=== PATIENT | male | born 1960 | race Caucasian/White ===

== ENCOUNTER → 2017-10-21 16:21 | Outpatient (CLI) | payer BC, SELFPAY ==
--- NOTE | 2017-10-21 16:26 | CT_ITS ---
STUDY: CT ABDOMEN AND PELVIS WITH AND WITHOUT CONTRAST REASON FOR EXAM: Male, 57 years old. Hematuria RADIATION DOSAGE (If Supplied By Facility): CTDIvol = ( 11.50 ) mGy, DLP = ( 788.32 ) mGycm TECHNIQUE: Transaxial images were obtained from the dome of the diaphragm to the symphysis pubis without oral contrast. 100 ml of Isovue 300 contrast was administered. Sagittal and coronal images were reconstructed. Individualized dose optimization techniques were used for this CT. COMPARISON: None. FINDINGS: The visualized lung bases are unremarkable. The visualized portions of the heart are within normal limits. Normal liver. Normal gallbladder and extrahepatic biliary system. Normal spleen. Normal pancreas. Normal adrenal glands. There are no urinary calculi. There is no hydronephrosis. There is symmetric enhancement and excretion noted in the kidneys following contrast administration. There is a simple cyst is noted in the left kidney. There are no solid or enhancing renal lesions. The urinary bladder is unremarkable. There is no bowel obstruction or inflammation. The prostate is mildly enlarged, measuring 5.0 x 4.3 cm. There is no abdominal or pelvic free air, free fluid or lymphadenopathy. The aorta is normal in caliber. There are no destructive osseous lesions. CT/CT Abd/Pelvis W/WO Contrast IMPRESSION: No urinary calculi. No hydronephrosis. Simple cyst in the left kidney. No additional renal lesions. Mildly enlarged prostate. Electronically Signed: Pavel Gates, at 17:26 EDT Tel , Service support ,
== END ==
PROVIDERS: Family Provider Family Medicine; PCP Family Medicine; Visit Provider Nurse Practitioner Adult Health
DX: R31.29 Other microscopic hematuria (principal)
CPT/HCPCS: 74178; Q9967

== ENCOUNTER → 2017-11-02 14:56 | Outpatient (CLI) | payer BC, SELFPAY ==
[2017-11-02 16:49] LABS: PSA,Total - Annual Screen 4.58 ng/mL (0.00-4.00)
== END ==
PROVIDERS: Family Provider Family Medicine; PCP Family Medicine; Visit Provider Urology
DX: Z12.5 Encounter for screening for malignant neoplasm of prostate (principal)
CPT/HCPCS: 36415; 84153; G0103

== ENCOUNTER → 2017-11-02 16:46 | Outpatient (CLI) | payer BC, SELFPAY ==
--- NOTE | 2017-11-02 | CYSPIN_PTH ---
PATIENT: DEBBI HORNE LOC: [facility] U#:[id number] AGE/SX: 64/M ROOM: RE11/02/[address]: Dr. Quirino Carvajal MD : 1960 BED: DIS: SPEC #: [id number] RECD: 11/02/17 08:06 STATUS: JESUS RAFAEL #: [id number] JOSEFA: 11/02/17 00:[address]: Quirino Carvajal DEPT: CYTOLOGY RECD BY: Chris De La Rosa ENTERED: 11/03/17 08:06 SP TYPE: CYSPIN FL OTHR DR: Dr. Ramírez Rushing MD Tissues: Urine Procedures: Pap Stain (control) Special Stain Group II Cytospin Fluid HEADER OPERATION: Not noted PRE-OP DIAGNOSIS: Hematuria TISSUE SUBMITTED: Urine for cytology DIAGNOSIS CYTOLOGY Urine for cytology (cytospin): Negative for malignant cells. SJ:ramses 11/04/17 CYTOLOGY STUDY Slides are reviewed. The specimen predominantly consists of benign squamous cells, a few urothelial cells and red blood cells. CYTOLOGY GROSS Received is 20 ml of light yellow clear fluid labeled with the patient's name and and designated per the requisition as urine. Submitted for cytology preparation. 11/03/17 TC:5 CPT: 69801
[2017-11-02 16:48] LABS: Cytology, Body Fluid / CSF SEE PATHOLOGY REPORT
== END ==
PROVIDERS: Family Provider Family Medicine; PCP Family Medicine; Visit Provider Urology
DX: R31.9 Hematuria, unspecified (principal)
CPT/HCPCS: 88108; 88313

== ENCOUNTER → 2021-06-07 07:33 | Outpatient (CLI) | payer BC, SELFPAY ==
[2021-06-07 08:01] LABS: Hematocrit 46.4 % (40-54); Hemoglobin 15.4 g/dL (13.0-16.5); Mean Corp Hgb Conc 33.2 g/dL (32-36); Mean Corpuscular Hgb 27.8 pg (27.0-32.0); Mean Corpuscular Volume 83.9 fL (80-94); Mean Platelet Vol. 10.2 fl (6.2-12.0); Platelet Count 233 K/mm3 (150-450); RBC Distribution Width CV 11.7 % (11.6-14.6); RBC Distribution Width SD 35.5 fl (35.1-43.9); Red Blood Count 5.53 M/mm3 (4.6-6.2); White Blood Count 3.4 K/mm3 (4.4-11.0)
[2021-06-07 08:21] LABS: AST(SGOT) 32 U/L (15-37); Alanine Aminotransfer ALT/SGPT 56 U/L (16-61); Albumin, Serum 3.9 g/dL (3.2-5.0); Alkaline Phosphatase 76 U/L (45-117); Anion Gap 5 (5-15); BUN 16 mg/dL (7-18); BUN/Creat Ratio 17.4 RATIO (10-20); Calcium,Total 9.3 mg/dL (8.5-10.1); Chloride 103 mmol/L (98-107); Cholesterol 189 mg/dL (200); Creatinine, Serum 0.92 mg/dL (0.70-1.30); EST Glomerular Filtration Rate 90 mL/min (>60); Est Glom Filt Rate - Afr Amer 108 mL/min (>60); Glucose 100 mg/dL (74-106); High Density Lipoprotein 55 mg/dL; PSA,Total - Annual Screen 5.09 ng/mL (0.00-4.00); Potassium 4.2 mmol/L (3.5-5.1); Protein, Total 7.9 g/dL (6.4-8.2); Sodium Level 138 mmol/L (136-145); Triglycerides 85 mg/dL; Very Low Density Lipoprotein 17 mg/dL (5-40)
== END ==
PROVIDERS: PCP Nurse Practitioner Primary Care; Referring Provider Urology; Visit Provider Urology
DX: Z00.00 Encounter for general adult medical examination without abnormal findings (principal); R97.20 Elevated prostate specific antigen [PSA]; Z12.5 Encounter for screening for malignant neoplasm of prostate; Z12.11 Encounter for screening for malignant neoplasm of colon
CPT/HCPCS: 36415; 80053; 80061; 84153; 85027; G0103

== ENCOUNTER → 2023-06-24 | Outpatient (CLI) | payer BC, SELFPAY | END | disposition home or self-care (01) | LOC: LAB 08:43 | PROVIDERS: PCP Nurse Practitioner Primary Care; Referring Provider Nurse Practitioner; Visit Provider Nurse Practitioner | DX: R97.20 Elevated prostate specific antigen [PSA] (principal) | CPT/HCPCS: 36415; 84153 ==

== ENCOUNTER → 2023-07-27 | Outpatient (CLI) | payer BC, SELFPAY ==
--- NOTE | 2023-07-27 13:00 | PROSBIL_PTH ---
PATHOLOGY RESULTS PATIENT: DEBBI HORNE LOC: [facility] U#:[id number] AGE/SX: 62/M ROOM: RE07/27/[address]: Dr. Quirino Carvajal MD : 1960 BED: DIS: 07/27/2023 SPEC #: [id number] RECD: 07/28/23 08:57 STATUS: JESUS REMami #: [id number] JOSEFA: 07/27/23 13:[address]: Quirino Carvajal DEPT: SURGICAL PATHOLOGY RECD BY: Jeniffer Olson ENTERED: 07/28/23 08:58 SP TYPE: PROST BX ELVIA DR: Omar Simmons, MONY Tissues: PROSTATE RIGHT PROSTATE RIGHT PROSTATE RIGHT PROSTATE LEFT PROSTATE LEFT PROSTATE LEFT Procedures: PROSTATE BX HEADER OPERATION: Prostate biopsy PRE-OP DIAGNOSIS: Elevated PSA TISSUE SUBMITTED: A - Right apex, B - Right mid, C - Right base, D - Left apex, E - Left mid, F - Left base MICROSCOPIC DIAGNOSIS A. Right prostate, apex, core biopsy: Glandular atrophy. Focal acute inflammation. See comment. B. Right prostate, mid, core biopsy: Mild chronic inflammation. Focal acute inflammation. Glandular atrophy. See comment. C. Right prostate, base, core biopsy: Glandular atrophy and mild chronic inflammation. D. Left prostate, apex, core biopsy: Benign prostatic tissue. E. Left prostate, mid, core biopsy: Focal glandular atrophy. F. Left prostate, base, core biopsy: Mild chronic inflammation, glandular atrophy and focal acute inflammation. AM:ramses 07/29/2023 COMMENT A & B. Immunohistochemistry ([id number]) supports the above diagnosis. MICROSCOPIC DESCRIPTION Slides are reviewed. GROSS DESCRIPTION A - Received is one container designated prostate, right apex. The specimen consists of two elongated fragments of light perez-white soft tissue measuring 1.0 and 2.0 cm in length and 0.1 cm in diameter. The specimen is totally submitted in one cassette. B - Received is one container designated prostate, right mid. The specimen consists of two elongated fragments of light perez-white soft tissue each measuring 1.8 cm in length and 0.1 cm in diameter. The specimen is totally submitted in one cassette. C - Received is one container designated prostate, right base. The specimen consists of two elongated fragments of light perez-white soft tissue measuring 1.2 and 1.5 cm in length and 0.1 cm in diameter. The specimen is totally submitted in one cassette. D - Received is one container designated prostate, left apex. The specimen consists of two elongated fragments of light perez-white soft tissue each measuring 1.5 cm in length and 0.1 cm in diameter. The specimen is totally submitted in one cassette. E - Received is one container designated prostate, left mid. The specimen consists of two elongated fragments of light perez-white soft tissue measuring 0.6 and 1.5 cm in length and 0.1 cm in diameter. The specimen is totally submitted in one cassette. F - Received is one container designated prostate, left base. The specimen consists of two elongated fragments of light perez-white soft tissue each measuring 1.5 cm in length and 0.1 cm in diameter. The specimen is totally submitted in one cassette. / SJ:rg 07/28/2023 TC:2 CPT: 16084 x6
--- OUTSIDE RECORDS SUMMARY | 2023-07-27 16:54 | XMS RPT_ITS | CCD ---
Author Name Unknown Address [address] [place] [address] Organization [facility] Care Team Providers Care Web Communications Specialist Name Role Phone DARRELL NORTON, FEROZ Primary Care Physician [phone] DARRELL MEDICAL EDUCATION SPECIALIST-ACCOUNT LEADER, FEROZ Primary Care Unavailabl e BALTES MEDICAL EDUCATION SPECIALIST-ACCOUNT LEADER, FEROZ Attending Unavailabl e FRANKOTES MEDICAL EDUCATION SPECIALIST-ACCOUNT LEADER, FEROZ Primary Care UnavailREBA Lee Attending Unavailable REBA VALLES Attending Unavailable BALTES MEDICAL EDUCATION SPECIALIST-ACCOUNT LEADER, FEROZ Primary Care Unavailabl samaria TORRES MD, CLAUDIA W Attending Unavailable BALTES MEDICAL EDUCATION SPECIALIST-ACCOUNT LEADER, FEROZ Primary Care Unavailabl e MCCUISTION MEDICAL EDUCATION SPECIALIST-ACCOUNT LEADER, HARISH Attending Chitra vailable DARRELL GURROLAN-ACCOUNT LEADER, FEROZ Primary Care Unavailabl e ALIVIA RAMIREZ MD Attending Unavailable BALTES MEDICAL EDUCATION SPECIALIST-ACCOUNT LEADER, FEROZ Primary Care Unavailabl e BALTES MEDICAL EDUCATION SPECIALIST-ACCOUNT LEADER, FEROZ Primary Care Unavailabl e BALTES MEDICAL EDUCATION SPECIALIST-ACCOUNT LEADER, FEROZ Attending REBA Jansen Attending Unavailable BALTES MEDICAL EDUCATION SPECIALIST-ACCOUNT LEADER, FEROZ Primary Care Unavailabl e BALTES MEDICAL EDUCATION SPECIALIST-ACCOUNT LEADER, FEROZ Primary Care Unavailabl e BALTES MEDICAL EDUCATION SPECIALIST-ACCOUNT LEADER, FEROZ Attending Unavailabl e Medications Current Medications Medication Drug Class(es) Dates Sig (Normalized) Sig (Original) acetaminophen 325 mg / HYDROcodone bitartrate 5 mg oral tablet (1 source) Opioid Agonist Start: 09-30-2021 End: 10-03-2021 take 1 tablet by mouth every six hours as needed for pain [place] 325- 5 mg oral tablet Dose = 1 tab(s), Oral, q6h, PRN as needed for pain, X 3 day(s), # 12 tab(s), 0 Refill(s), Lateral malleolar fracture, 75 Start Date: 09/30/21 Stop Date: 10/03/21 Status: Ordered albuterol MDI (90 mcg/inh) CFC free inhalation aerosol (3 sources) Start: 04-21-2021 take 2 puff(s) by inhalation every four hours as needed for wheezing albuterol MDI (90 mcg/inh) CFC free inhalation aerosol 2 puff(s), Inhalation, q4h, PRN as needed for wheezing, # 18 gram(s), 0 Refill(s), Pharmacy: [facility]/pharmacy #[id number], URI with cough and congestion, 167.6, cm, 04/21/21 9:22:00 EDT, Height, kg, 04/21/21 9:22:00 EDT, Dosing Weight Start Date: 04/21/21 Status: Ordered Ascorbic Acid (2 sources) Vitamin C Start: 11-28-2020 Vitamin C qDay, unsure of amount, 0 Refill(s) Start Date: 11/28/20 Status: Ordered FISH OIL, OMEGA 3, VIT D (10 sources) Start: 11-15-2018 take 3 tablets by mouth once FISH OIL, OMEGA 3, VIT D FISH OIL, OMEGA 3, VIT D, 1 TAB, Oral, Daily, D3 1000 IU Fish Oil 1000 mg, 0 Refill(s) Start Date: 11/15/18 Status: Ordered Completed/Discontinued Medications Medication Drug Class(es) Dates Sig (Normalized) Sig (Original) erythromycin 0.005 mg/mg ophthalmic ointment (10 sources) Macrolide, Macrolide Antimicrobial Start: 04-23-2017 erythromycin 0.5% ophthalmic ointment Dose = 1 dinesh, Eye, right, Daily, PRN as needed, 0 Refill(s) Start Date: 04/23/17 Status: Ordered Problems Active Problems Problem Classification Problem Date Documented Da te Episodic/Chronic Essential hypertension (12 sources) Hypertensive disorder; Translations: [Essential (primary) hypertension] Onset: 12-17-2022 04-23-2017 Chronic Fracture of lower limb (2 sources) Closed fracture of lateral malleolus; Translations: [Displaced fracture of lateral malleolus of unspecified fibula, initial encounter for closed fracture] Onset: 09-30-2021 Episodic Hyperplasia of prostate (3 sources) Benign prostatic hyperplasia 12-27-2022 Chronic Other ear and sense organ disorders (3 sources) Tinnitus 12-27-2022 Episodic Thyroid disorders (10 sources) Graves' disease 04-23-2017 Chronic Unclassified (12 sources) Patient encounter status 12-27-2022 Past or Other Problems Problem Classification Problem Date Documented Da te Episodic/Chronic Other screening for suspected conditions (not mental disorders or infectious disease) (2 sources) Encounter for screening for malignant neoplasm of colon; Translations: [Encounter for screening for malignant neoplasm of colon] Onset: 07-24-2022 Episodic Results Test Name Value Interpretation Reference Range Facil ity Vital Signs Date Time Vital Sign Value Performing Clinician Faci lity 07-24-2022 11:56-0500 Diastolic Blood Pressure Non-Invasive 78 1 CLAUDIA TORRES MD [facility] 07-24-2022 11:56-0500 Heart rate 65 /min CLAUDIA TORRES MD [facility] 07-24-2022 11:56-0500 Respiratory rate 18 /min CLAUDIA TORRES MD [facility] 07-24-2022 11:56-0500 Systolic Blood Pressure Non-Invasive 121 1 CLAUDIA TORRES MD [facility] 07-24-2022 11:46-0500 Diastolic Blood Pressure Non-Invasive 83 1 CLAUDIA TORRES MD [facility] 07-24-2022 11:46-0500 Heart rate 66 /min CLAUDIA TORRES MD [facility] 07-24-2022 11:46-0500 Respiratory rate 13 /min CLAUDIA TORRES MD [facility] 07-24-2022 11:46-0500 Systolic Blood Pressure Non-Invasive 125 1 CLAUDIA TORRES MD [facility] 07-24-2022 11:34-0500 Diastolic Blood Pressure Non-Invasive 87 1 CLAUDIA TORRES MD [facility] 07-24-2022 11:34-0500 Heart rate 55 /min CLAUDIA TORRES MD [facility] 07-24-2022 11:34-0500 Respiratory rate 12 /min CLAUDIA TORRES MD [facility] 07-24-2022 11:34-0500 Systolic Blood Pressure Non-Invasive 131 1 CLAUDIA TORRES MD [facility] 07-24-2022 11:05-0500 Blood Pressure Location CLAUDIA TORRES MD [facility] 07-24-2022 11:05-0500 Blood Pressure Method CLAUDIA TORRES MD [facility] 07-24-2022 11:05-0500 Body temperature 97.16 [degF] CLAUDIA TORRES MD [facility] 07-24-2022 11:00-0500 Respiratory Rate - Anes 17 br/min CLAUDIA TORRES MD [facility] 07-24-2022 10:55-0500 Respiratory Rate - Anes 18 br/min CLAUDIA TORRES MD [facility] 07-24-2022 10:50-0500 Respiratory Rate - Anes 22 br/min CLAUDIA TORRES MD [facility] 07-24-2022 09:58-0500 Body height 167.6 cm CLAUDIA TORRES MD [facility] 07-24-2022 09:58-0500 Body weight 72.7 kg CLAUDIA TORRES MD [facility] 07-24-2022 09:44-0500 Body height 167.6 cm CLAUDIA TORRES MD [facility] 07-24-2022 09:44-0500 Body temperature 95.72 [degF] CLAUDIA TORRES MD [facility] 07-24-2022 09:44-0500 Heart rate 62 /min CLAUDIA TORRES MD [facility] 09-30-2021 10:01-0400 Body height 167.6 cm REY FROMMELT DO [facility] 09-30-2021 10:01-0400 Body temperature 98.42 [degF] REY FROMMELT DO [facility] 09-30-2021 10:01-0400 Body weight 75 kg REY FROMMELT DO [facility] 09-30-2021 10:01-0400 Diastolic blood pressure 100 mm[Hg] REY FROMMELT DO [facility] 09-30-2021 10:01-0400 Heart rate 70 /min REY FROMMELT DO [facility] 09-30-2021 10:01-0400 Respiratory rate 18 /min REY FROMMELT DO [facility] 09-30-2021 10:01-0400 Systolic blood pressure 162 mm[Hg] REY FROMMELT DO [facility] Encounters Encounter Date Encounter Type Care Provider Facility Start: 06-07-2023 End: 06-08-2023 ambulatory REBA VALLES Facility:B Start: 06-07-2023 End: 06-07-2023 Patient encounter procedure REBA VALLES MD [facility] Start: 02-26-2023 End: 02-27-2023 ambulatory REBA VALLES Facility:A Start: 02-26-2023 End: 02-26-2023 Patient encounter procedure REBA VALLES MD [facility] Start: 01-26-2023 End: 01-27-2023 ambulatory FEROZ BALTES MEDICAL EDUCATION SPECIALIST-ACCOUNT LEADER Facility:B Start: 12-31-2022 End: 01-01-2023 ambulatory FEROZ BALTES MEDICAL EDUCATION SPECIALIST-ACCOUNT LEADER Facility:B Start: 12-31-2022 End: 12-31-2022 Patient encounter procedure FEROZ BALTES MEDICAL EDUCATION SPECIALIST-ACCOUNT LEADER [facility] Start: 12-17-2022 End: 12-22-2022 ambulatory FEROZ BALTES MEDICAL EDUCATION SPECIALIST-ACCOUNT LEADER Facility:B Start: 12-17-2022 End: 12-21-2022 Outreach Lab FEROZ BALTES MEDICAL EDUCATION SPECIALIST-ACCOUNT LEADER [facility] Start: 11-14-2022 End: 11-15-2022 ambulatory FEROZ BALTES MEDICAL EDUCATION SPECIALIST-ACCOUNT LEADER Facility:B Start: 11-14-2022 End: 11-14-2022 Patient encounter procedure FEROZ BALTES MEDICAL EDUCATION SPECIALIST-ACCOUNT LEADER [facility] Start: 07-24-2022 End: 07-24-2022 ambulatory CLAUDIA TORRES MD Facility:B Start: 07-24-2022 End: 07-24-2022 Minor Procedure CLAUDIA TORRES MD [facility] Start: 06-29-2022 End: 06-30-2022 ambulatory HARISH FREED MEDICAL EDUCATION SPECIALIST-ACCOUNT LEADER Facility:B Start: 06-29-2022 End: 06-29-2022 Patient encounter procedure HARISH FREED MEDICAL EDUCATION SPECIALIST-ACCOUNT LEADER [facility] Start: 11-11-2021 End: 01-20-2022 Physical therapy management RAMIRO MAGDALENO MD [facility] Start: 09-30-2021 End: 09-30-2021 Emergency department patient visit REY VIEIRA DO [facility] Procedures Date Procedure Procedure Detail Performing Clinician Start: 04-23-2017 Colonoscopy and biop sy of colon REY VIEIRA DO Start: 07-05-2016 Bilateral cataracts (disorder) REY VIEIRA DO Immunizations Immunization Date Immunization Notes Care Provider Joni cunningham 06-04-2021 COVID-19, mRNA, LNP- S, PF, 100 mcg or 50 mcg dose; Translations: [Moderna COVID-19 Vaccine] REY VIEIRA DO [facility] 10-27-2020 SARS-CoV-2 (COVID-19 ) mRNA-1273 vaccine REY VIEIRA DO [facility] Payers Date Payer Category Payer Unknown [id number] 1960 Unknown [id number] [id number] [id number] 1960 Unknown [id number] 2.16.8 [id number] 1960 Unknown [id number] 2.16.8 [id number] 1960 Unknown [id number] 2.16.8 [id number] 1961 Unknown [id number] 2.16.8 [id number] 1961 Unknown [id number] 2.16.8 [id number] 1961 Unknown [id number] 2.16.8 [id number] 1961 Unknown [id number] 2.16.8 [id number] 1960 Unknown [id number] 2.16.8 [id number] Social History Date Type Detail Facility Start: 04-21-2021 End: 12-17-2022 Tobacco smoking status Ex-smoker (finding) [facility] Functional Status Date Assessment Result Facility 07-24-2022 Functional Status Ambulating in room, Awake [facility] 07-24-2022 Functional Status Maintained [facility] 09-30-2021 Functional Status [facility] 09-30-2021 Functional Status [facility] Mental Status Date Assessment Result Facility 07-24-2022 Mental Status Orientation Asse ssment Oriented x 4 [facility] 09-30-2021 Mental Status [facility] 09-30-2021 Mental Status [facility] Clinical Notes 09-30-2021 to 06-07-2023 LaboratoryRadiologyLaboratory Note Date & Type Note Facility 06-07-2023 Note ORIGINAL EXAMINATION: CT CHEST WITHOUT CONTRAST 06/07/2023 4:05 pm HISTORY: ORDERING SYSTEM PROVIDED HISTORY: Reason for Exam: LUNG NODULE F/U nodule, no current chest complaints.. TECHNIQUE: Multiple-row detector helical CT examination of the thorax without IV contrast. Axial, sagittal, and coronal reconstructed images. This exam was performed according to the departmental dose-optimization program which includes automated exposure control, adjustment of the mA and/or kV according to patient size and/or use of iterative reconstruction technique. COMPARISON: 12/31/2022. FINDINGS: 1.2 x 0.9 cm nodule in the left upper lobe shown to be non hypermetabolic on PET scan is not significantly changed in size or appearance. There is no evidence of new pulmonary nodule. There is no evidence of pleural effusion or pneumothorax. No new airspace or interstitial lung disease is identified. Tracheobronchial tree is fairly well preserved. There is no evidence of axillary, supraclavicular, mediastinal for hilar lymph node enlargement. There is no evidence of pericardial effusion. No thoracic aortic aneurysm is identified. The adrenal glands are not enlarged. Bone windows reveal no evidence of acute fracture or osteolytic/osteoblastic lesion. Anterior fusion is noted in the inferior cervical spine. IMPRESSION: Stable 12 mm left upper lobe pulmonary nodule since 12/31/2022. Follow-up CT of the chest in 6-12 months to ensure further stability. Interpreted by: Mg Askew Preliminary Report By: Mg sAkew Electronically signed By Mg Askew Dictated Date: 06/07/2023 4:33:02 PM Prelim Date: 06/07/2023 4:39:56 PM Sign Date: 06/07/2023 4:39:56 PM [facility] Note ORIGINAL EXAMINATION: PET TUMOR IMAGING SKULL-THIGH02/26/2023 9:31 am TECHNIQUE: Intravenous injection of 14.8 mCi Fluorine-18 fluorodeoxyglucose (FDG) was administered, followed by acquisition of positron emission tomographic images from the skull base to mid thigh, with concurrent low-dose CT for attenuation correction and anatomic localization utilizing a combined PET/CT scanner. PET images were fused with low-dose CT at the workstation. Dose ceffzzrha-ck-ixwo time:81 min Serum glucose level: 95 mg/dl COMPARISON: CT chest 12/31/2022 HISTORY: ORDERING SYSTEM PROVIDED HISTORY: Reason for Exam: LUNG NODULE FINDINGS: NECK: No hypermetabolic soft tissue lesion within the neck. No hypermetabolic cervical lymph nodes. CHEST: Left upper lobe 1.2 cm lung nodule is without significant hypermetabolic activity (max SUV of 0.8). There may be small areas of calcification within this nodule. No hypermetabolic mediastinal, hilar, or axillary lymphadenopathy. ABDOMEN/PELVIS: No hypermetabolic soft tissue lesion. No hypermetabolic abdominal or pelvic lymphadenopathy. Physiologic excretion of radiotracer is present within the kidneys, ureters, urinary bladder, as well as the bowel. Enlarged prostate, with probable chronic outlet obstruction. Mild colonic diverticulosis. MUSCULOSKELETAL: No hypermetabolic or suspicious osseous lesion to suggest osseous metastatic disease. IMPRESSION: 1. 1.2 cm left upper lobe pulmonary nodule is non FDG avid, and benignity is strongly favored. Patient may return to screening low-dose CT in December of 2023 2. No FDG avid malignancy throughout the remainder of the torso. I have personally reviewed the images of this examination and agree with the resident's findings and interpretation. Interpreted by: Gianni Guy DO Preliminary Report By: Jordan Patel Electronically signed By Gianni Guy DO Dictated Date: 02/26/2023 9:39:31 AM Prelim Date: 02/26/2023 10:25:34 AM Sign Date: 02/26/2023 10:25:34 AM Ordering Provider: REBA VALLES [facility] 07-24-2022 Hospital Discharg e instructions Patient Education 07/24/2022 10:59:50 Nausea and Vomiting, Adult, Anxo-ri-Gkxe Nausea and Vomiting, Adult Nausea is feeling sick to your stomach or feeling that you are about to throw up (vomit). Vomiting is when food in your stomach is thrown up and out of the mouth. Throwing up can make you feel weak. It can also make you lose too much water in your body (get dehydrated). If you lose too much water in your body, you may: Feel tired. Feel thirsty. Have a dry mouth. Have cracked lips. Go pee (urinate) less often. Older adults and people with other diseases or a weak body defense system (immune system) are at higher risk for losing too much water in the body. If you feel sick to your stomach and you throw up, it is important to follow instructions from your doctor about how to take care of yourself. Follow these instructions at home: Watch your symptoms for any changes. Tell your doctor about them. Follow these instructions to care for yourself at home. Eating and drinking Take an ORS (oral rehydration solution). This is a drink that is sold at pharmacies and stores. Drink clear fluids in small amounts as you are able, such as: ?Water. ?Ice chips. ?Fruit juice that has water added (diluted fruit juice). ?Low-calorie sports drinks. Eat bland, avch-ss-dzcodf foods in small amounts as you are able, such as: ?Bananas. ?Applesauce. ?Rice. ?Low-fat (lean) meats. ?Low [place]. ?Crackers. Avoid drinking fluids that have a lot of sugar or caffeine in them. This includes energy drinks, sports drinks, and soda. Avoid alcohol. Avoid spicy or fatty foods. General instructions Take stib-wrr-fhtdhfg and prescription medicines only as told by your doctor. Drink enough fluid to keep your pee (urine) pale yellow. Wash your hands often with soap and water. If you cannot use soap and water, use hand information receptionist. Make sure that all people in your home wash their hands well and often. Rest at home while you get better. Watch your condition for any changes. Take slow and deep breaths when you feel sick to your stomach. Keep all follow-up visits as told by your doctor. This is important. Contact a doctor if: Your symptoms get worse. You have new symptoms. You have a fever. You cannot drink fluids without throwing up. You feel sick to your stomach for more than 2 days. You feel light-headed or dizzy. You have a headache. You have muscle cramps. You have a rash. You have pain while peeing. Get help right away if: You have pain in your chest, neck, arm, or jaw. You feel very weak or you pass out (faint). You throw up again and again. You have throw up that is bright red or looks like black coffee grounds. You have bloody or black poop (stools) or poop that looks like tar. You have a very bad headache, a stiff neck, or both. You have very bad pain, cramping, or bloating in your belly (abdomen). You have trouble breathing. You are breathing very quickly. Your heart is beating very quickly. Your skin feels cold and clammy. You feel confused. You have signs of losing too much water in your body, such as: ?Dark pee, very little pee, or no pee. ?Cracked lips. ?Dry mouth. ?Sunken eyes. ?Sleepiness. ?Weakness. These symptoms may be an emergency. Do not wait to see if the symptoms will go away. Get medical help right away. Call your local emergency services (911 in the [place] Do not drive yourself to the hospital. Summary Nausea is feeling sick to your stomach or feeling that you are about to throw up (vomit). Vomiting is when food in your stomach is thrown up and out of the mouth. Follow instructions from your doctor about eating and drinking to keep from losing too much water in your body. Take ykoi-rni-dqaiddv and prescription medicines only as told by your doctor. Contact your doctor if your symptoms get worse or you have new symptoms. Keep all follow-up visits as told by your doctor. This is important. This information is not intended to replace advice given to you by your health care provider. Make sure you discuss any questions you have with your health care provider. Document Released: 12/07/2008 Document Revised: 10/13/2019 Document Reviewed: 11/29/2018 [employer] Patient Education 2020 [employer] 07/24/2022 10:59:44 Monitored Anesthesia Care, Care After Monitored Anesthesia Care, Care After These instructions provide you with information about caring for yourself after your procedure. Your health care provider may also give you more specific instructions. Your treatment has been planned according to current medical practices, but problems sometimes occur. Call your health care provider if you have any problems or questions after your procedure. What can I expect after the procedure? After your procedure, you may: Feel sleepy for several hours. Feel clumsy and have poor balance for several hours. Feel forgetful about what happened after the procedure. Have poor judgment for several hours. Feel nauseous or vomit. Have a sore throat if you had a breathing tube during the procedure. Follow these instructions at home: For at least 24 hours after the procedure: Have a responsible adult stay with you. It is important to have someone help care for you until you are awake and alert. Rest as needed. Do not: ?Participate in activities in which you could fall or become injured. ?Drive. ?Use heavy machinery. ?Drink alcohol. ?Take sleeping pills or medicines that cause drowsiness. ?Make important decisions or sign legal documents. ?Take care of children on your own. Eating and drinking Follow the diet that is recommended by your health care provider. If you vomit, drink water, juice, or soup when you can drink without vomiting. Make sure you have little or no nausea before eating solid foods. General instructions Take tnip-mkr-nfwqwva and prescription medicines only as told by your health care provider. If you have sleep apnea, surgery and certain medicines can increase your risk for breathing problems. Follow instructions from your health care provider about wearing your sleep device: ?Anytime you are sleeping, including during daytime naps. ?While taking prescription pain medicines, sleeping medicines, or medicines that make you drowsy. If you smoke, do not smoke without supervision. Keep all follow-up visits as told by your health care provider. This is important. Contact a health care provider if: You keep feeling nauseous or you keep vomiting. You feel light-headed. You develop a rash. You have a fever. Get help right away if: You have trouble breathing. Summary For several hours after your procedure, you may feel sleepy and have poor judgment. Have a responsible adult stay with you for at least 24 hours or until you are awake and alert. This information is not intended to replace advice given to you by your health care provider. Make sure you discuss any questions you have with your health care provider. Document Released: 10/11/2016 Document Revised: 09/19/2018 Document Reviewed: 10/11/2016 [employer] Patient Education 2020 [employer] 07/24/2022 10:59:34 Colonoscopy, Adult, Care After Colonoscopy, Adult, Care After This sheet gives you information about how to care for yourself after your procedure. Your health care provider may also give you more specific instructions. If you have problems or questions, contact your health care provider. What can I expect after the procedure? After the procedure, it is common to have: A small amount of blood in your stool for 24 hours after the procedure. Some gas. Mild abdominal cramping or bloating. Follow these instructions at home: General instructions For the first 24 hours after the procedure: ?Do not drive or use machinery. ?Do not sign important documents. ?Do not drink alcohol. ?Do your regular daily activities at a slower pace than normal. ?Eat soft, atcj-yi-uxteri foods. Take qvmd-tmk-jzxuibl or prescription medicines only as told by your health care provider. Relieving cramping and bloating Try walking around when you have cramps or feel bloated. Apply heat to your abdomen as told by your health care provider. Use a heat source that your health care provider recommends, such as a moist heat pack or a heating pad. ?Place a towel between your skin and the heat source. ?Leave the heat on for 20 30 minutes. ?Remove the heat if your skin turns bright red. This is especially important if you are unable to feel pain, heat, or cold. You may have a greater risk of getting burned. Eating and drinking Drink enough fluid to keep your urine pale yellow. Resume your normal diet as instructed by your health care provider. Avoid heavy or fried foods that are hard to digest. Avoid drinking alcohol for as long as instructed by your health care provider. Contact a health care provider if: You have blood in your stool 2 3 days after the procedure. Get help right away if: You have more than a small spotting of blood in your stool. You pass large blood clots in your stool. Your abdomen is swollen. You have nausea or vomiting. You have a fever. You have increasing abdominal pain that is not relieved with medicine. Summary After the procedure, it is common to have a small amount of blood in your stool. You may also have mild abdominal cramping and bloating. For the first 24 hours after the procedure, do not drive or use machinery, sign important documents, or drink alcohol. Contact your health care provider if you have a lot of blood in your stool, nausea or vomiting, a fever, or increased abdominal pain. This information is not intended to replace advice given to you by your health care provider. Make sure you discuss any questions you have with your health care provider. Document Released: 02/02/2005 Document Revised: 04/13/2018 Document Reviewed: 09/01/2016 [employer] Patient Education 2020 Productiv. Follow Up Care 06/19/2022 11:05:47 With:CLAUDIA TORRES MD, Surgery Address: [address] [place] [address]- [phone] When:Within 10 Year(s) Comments:Unless otherwise specified by physician. Call office for any questions or concerns. Go to nearest emergency room for any emergent concerns. [facility] 07-24-2022 Summary of episod e note Discharge Instructions Thank you for allowing [facility] to assist you with your healthcare needs. The following is important discharge information regarding your hospital visit. Your Care Team FEROZ RAMÍREZ APRN-KACIE Torres Your Diagnosis colonoscopy What to do next Follow Up Appointments Follow Up with CLAUDIA TORRES MD, Surgery When In 10 years Why: Unless otherwise specified by physician. Call office for any questions or concerns. Go to nearest emergency room for any emergent concerns. Where: [address] [place] [address] [phone] Allergies NKA Medications Please ask your primary doctor or pharmacist before taking any other medication not listed, including over the counter drugs, herbal medications, vitamins and or supplements as they may interact with your home medications. What How Much When Why Instructions Last Dose Unchanged erythromycin ophthalmic (erythromycin 0.5% ophthalmic ointment) 1 application Right eye Every day as needed for as needed Unchanged hydrochlorothiazide-lisinopril (hydrochlorothiazide-lisinopril 12.5 mg-10 mg oral tablet) 1 tab(s) by mouth Every day HTN (hypertension) Unchanged levothyroxine (levothyroxine 100 mcg (0.1 mg) oral tablet) 1 tab(s) by mouth Once a day Unchanged Misc Medication (FISH OIL, OMEGA 3, VIT D) 1 TAB by mouth Every day Unchanged multivitamin (Multivitamin) 1 tab(s) by mouth Every day Unchanged tamsulosin (tamsulosin 0.4 mg oral capsule) Please take this list to your next doctor s visit. Bring all medications you take, including over the counter medications, herbals and other supplements with you to your doctor s visit. Patients and families are reminded to discard old lists and to update any records with all medication providers or retail pharmacies. Education Materials Nausea and Vomiting, Adult Nausea is feeling sick to your stomach or feeling that you are about to throw up (vomit). Vomiting is when food in your stomach is thrown up and out of the mouth. Throwing up can make you feel weak. It can also make you lose too much water in your body (get dehydrated). If you lose too much water in your body, you may: Feel tired. Feel thirsty. Have a dry mouth. Have cracked lips. Go pee (urinate) less often. Older adults and people with other diseases or a weak body defense system (immune system) are at higher risk for losing too much water in the body. If you feel sick to your stomach and you throw up, it is important to follow instructions from your doctor about how to take care of yourself. Follow these instructions at home: Watch your symptoms for any changes. Tell your doctor about them. Follow these instructions to care for yourself at home. Eating and drinking Take an ORS (oral rehydration solution). This is a drink that is sold at pharmacies and stores. Drink clear fluids in small amounts as you are able, such as: ? Water. ? Ice chips. ? Fruit juice that has water added (diluted fruit juice). ? Low-calorie sports drinks. Eat bland, segz-up-hizejg foods in small amounts as you are able, such as: ? Bananas. ? Applesauce. ? Rice. ? Low-fat (lean) meats. ? Low [place]. ? Crackers. Avoid drinking fluids that have a lot of sugar or caffeine in them. This includes energy drinks, sports drinks, and soda. Avoid alcohol. Avoid spicy or fatty foods. General instructions Take zhfo-ysb-xwblbjb and prescription medicines only as told by your doctor. Drink enough fluid to keep your pee (urine) pale yellow. Wash your hands often with soap and water. If you cannot use soap and water, use hand information receptionist. Make sure that all people in your home wash their hands well and often. Rest at home while you get better. Watch your condition for any changes. Take slow and deep breaths when you feel sick to your stomach. Keep all follow-up visits as told by your doctor. This is important. Contact a doctor if: Your symptoms get worse. You have new symptoms. You have a fever. You cannot drink fluids without throwing up. You feel sick to your stomach for more than 2 days. You feel light-headed or dizzy. You have a headache. You have muscle cramps. You have a rash. You have pain while peeing. Get help right away if: You have pain in your chest, neck, arm, or jaw. You feel very weak or you pass out (faint). You throw up again and again. You have throw up that is bright red or looks like black coffee grounds. You have bloody or black poop (stools) or poop that looks like tar. You have a very bad headache, a stiff neck, or both. You have very bad pain, cramping, or bloating in your belly (abdomen). You have trouble breathing. You are breathing very quickly. Your heart is beating very quickly. Your skin feels cold and clammy. You feel confused. You have signs of losing too much water in your body, such as: ? Dark pee, very little pee, or no pee. ? Cracked lips. ? Dry mouth. ? Sunken eyes. ? Sleepiness. ? Weakness. These symptoms may be an emergency. Do not wait to see if the symptoms will go away. Get medical help right away. Call your local emergency services (911 in the [place] Do not drive yourself to the hospital. Summary Nausea is feeling sick to your stomach or feeling that you are about to throw up (vomit). Vomiting is when food in your stomach is thrown up and out of the mouth. Follow instructions from your doctor about eating and drinking to keep from losing too much water in your body. Take uzys-kgs-fzpdexd and prescription medicines only as told by your doctor. Contact your doctor if your symptoms get worse or you have new symptoms. Keep all follow-up visits as told by your doctor. This is important. This information is not intended to replace advice given to you by your health care provider. Make sure you discuss any questions you have with your health care provider. Document Released: 12/07/2008 Document Revised: 10/13/2019 Document Reviewed: 11/29/2018 [employer] Patient Education 2020 [employer] Monitored Anesthesia Care, Care After These instructions provide you with information about caring for yourself after your procedure. Your health care provider may also give you more specific instructions. Your treatment has been planned according to current medical practices, but problems sometimes occur. Call your health care provider if you have any problems or questions after your procedure. What can I expect after the procedure? After your procedure, you may: Feel sleepy for several hours. Feel clumsy and have poor balance for several hours. Feel forgetful about what happened after the procedure. Have poor judgment for several hours. Feel nauseous or vomit. Have a sore throat if you had a breathing tube during the procedure. Follow these instructions at home: For at least 24 hours after the procedure: Have a responsible adult stay with you. It is important to have someone help care for you until you are awake and alert. Rest as needed. Do not: ? Participate in activities in which you could fall or become injured. ? Drive. ? Use heavy machinery. ? Drink alcohol. ? Take sleeping pills or medicines that cause drowsiness. ? Make important decisions or sign legal documents. ? Take care of children on your own. Eating and drinking Follow the diet that is recommended by your health care provider. If you vomit, drink water, juice, or soup when you can drink without vomiting. Make sure you have little or no nausea before eating solid foods. General instructions Take wcfp-frx-qokovcv and prescription medicines only as told by your health care provider. If you have sleep apnea, surgery and certain medicines can increase your risk for breathing problems. Follow instructions from your health care provider about wearing your sleep device: ? Anytime you are sleeping, including during daytime naps. ? While taking prescription pain medicines, sleeping medicines, or medicines that make you drowsy. If you smoke, do not smoke without supervision. Keep all follow-up visits as told by your health care provider. This is important. Contact a health care provider if: You keep feeling nauseous or you keep vomiting. You feel light-headed. You develop a rash. You have a fever. Get help right away if: You have trouble breathing. Summary For several hours after your procedure, you may feel sleepy and have poor judgment. Have a responsible adult stay with you for at least 24 hours or until you are awake and alert. This information is not intended to replace advice given to you by your health care provider. Make sure you discuss any questions you have with your health care provider. Document Released: 10/11/2016 Document Revised: 09/19/2018 Document Reviewed: 10/11/2016 [employer] Patient Education 2020 [employer]. Colonoscopy, Adult, Care After This sheet gives you information about how to care for yourself after your procedure. Your health care provider may also give you more specific instructions. If you have problems or questions, contact your health care provider. What can I expect after the procedure? After the procedure, it is common to have: A small amount of blood in your stool for 24 hours after the procedure. Some gas. Mild abdominal cramping or bloating. Follow these instructions at home: General instructions For the first 24 hours after the procedure: ? Do not drive or use machinery. ? Do not sign important documents. ? Do not drink alcohol. ? Do your regular daily activities at a slower pace than normal. ? Eat soft, dfil-ak-cjwkuq foods. Take npyz-hrz-znhhumx or prescription medicines only as told by your health care provider. Relieving cramping and bloating Try walking around when you have cramps or feel bloated. Apply heat to your abdomen as told by your health care provider. Use a heat source that your health care provider recommends, such as a moist heat pack or a heating pad. ? Place a towel between your skin and the heat source. ? Leave the heat on for 20 30 minutes. ? Remove the heat if your skin turns bright red. This is especially important if you are unable to feel pain, heat, or cold. You may have a greater risk of getting burned. Eating and drinking Drink enough fluid to keep your urine pale yellow. Resume your normal diet as instructed by your health care provider. Avoid heavy or fried foods that are hard to digest. Avoid drinking alcohol for as long as instructed by your health care provider. Contact a health care provider if: You have blood in your stool 2 3 days after the procedure. Get help right away if: You have more than a small spotting of blood in your stool. You pass large blood clots in your stool. Your abdomen is swollen. You have nausea or vomiting. You have a fever. You have increasing abdominal pain that is not relieved with medicine. Summary After the procedure, it is common to have a small amount of blood in your stool. You may also have mild abdominal cramping and bloating. For the first 24 hours after the procedure, do not drive or use machinery, sign important documents, or drink alcohol. Contact your health care provider if you have a lot of blood in your stool, nausea or vomiting, a fever, or increased abdominal pain. This information is not intended to replace advice given to you by your health care provider. Make sure you discuss any questions you have with your health care provider. Document Released: 02/02/2005 Document Revised: 04/13/2018 Document Reviewed: 09/01/2016 [employer] Patient Education 2020 Productiv. Additional Information VACCINATE! IT SAVES LIVES! Members of the community who have not yet received the COVID-19 vaccine and would like to receive it can visit one of [facility] vaccine clinics. There are many vaccine clinic locations within the [facility]. For locations and available times, please visit [email or web address] It is important to note that some COVID mobile vaccine clinics are held outdoors and may be canceled in rainy or stormy conditions. To learn more about pediatric vaccinations (ages 5-11), we invite you to visit the [facility] webpage. [email or web address] To learn more about the COVID-19 vaccine, we invite you to visit the [facility] website for a list of frequently asked questions. [email or web address] [email or web address].pdf [facility] Patient Portal Access Instructions: Stay connected with your healthcare team and access your personal medical information anytime with the [facility] Patient Portal.If you would like a full copy of your medical records, please contact the [facility] Medical Records Department, Wednesday through Wednesday between 8a.m. and 4:30p.m. Please follow the directions below to access the portal: 1.Access the email account you provided upon registration to the [facility].2.Look for an invitation email from [facility].3.Open the email and access the invitation link: Accept Invitation to [facility]4.Fill in the required fraser to create your account. Sign into [email or web address] with your username and password that you created in the above steps to stay up to date. You can then view a summary of results, a summary of your visits, and the ability to download your summaries to your computer or send the information securely to a physician. Remember that your healthcare information is confidential, so carefully consider who you will allow to register on the [facility] Patient Portal for access to your information. You can also access the [facility] Patient Portal on the [employer] dinesh. Simply click on Health Records under Health Data and then click on the [employer] logo. HOW TO SAFELY DISPOSE OF PRESCRIPTION MEDICATIONS Please use one of the following methods to safely dispose of your unused medications. 1.Use a drug disposal kit: the drug disposal pouch allows you to safely discard your old and unused drugs. Ask your nurse to give you one when you are discharged.2.Visit a local take-back location: Many local pharmacies and police departments have programs that collect old and unwanted prescription drugs. Call your local pharmacy or go to http://ZeroPercent.us.Uro Jock/9Y7Af8u to find one close to you.3.Make use of household items: Use cat litter or old coffee grounds to dispose medications if other options are not available. Mix your drugs with these household products, seal them in an airtight container and throw it into the garbage. Call [facility]: [phone] to be sure your drugs can be disposed of in this way. Some medicines may require a different approach.4.Never flush your medications down the toilet. IF YOU HAVE BEEN PRESCRIBED AN OPIOID FOR PAIN If you have been prescribed an opioid (such as hydrocodone, oxycodone or morphine), it is critical to understand the possible side effects and risks of opioid pain medications. Even when taken as directed, opioids can have several side effects including: Tolerance, meaning you might need to take more of a medication for the same pain relief. Nausea, vomiting and/or constipation. Sleepiness, dizziness, dry mouth, confusion, depression or itching. Physical dependence, meaning you have withdrawal symptoms when a medication is stopped, can develop within a few days. KNOW YOUR RESPONSIBILITIES It is important to know exactly how much and how often to take the opioid pain medications you are prescribed. Never take opioids in higher amounts or more often than prescribed. Do not combine opioids with alcohol or other drugs that cause drowsiness, such as benzodiazepines, also known as benzos, including diazepam and alprazolam, muscle relaxants or sleep aids. Never sell or share prescription opioids. This is illegal. Store opioids in a secure place and out of reach of others (including children, family, friends and visitors). The last page of this document has been signed and retained as a CHART COPY. Signatures Patient Education Materials Nausea and Vomiting, Adult, Wxmc-jk-Rzkw Monitored Anesthesia Care, Care After Colonoscopy, Adult, Care After Medication Leaflets My discharge plan and instructions have been reviewed and explained to me and I,COLEEN DEBBI W understand my current condition and have read and understand these discharge instructions. I have received a written copy of the plan/instructions. If I have questions, I am aware that I should contact my doctor. 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 Respiratory function: lungs are clear to auscultation. Respiratory support: none. CV function: Normal rate. Cardiovascular support: none. Pain. Nausea status: denies nausea. Postoperative hydration status: within normal limits. Digitally Signed by MYRIAM WESLEY on 07/24/2022 11:20 AM [facility] 07-24-2022 Anesthesiology Consult note Patient: DEBBI HORNE Age: 61 years Sex: Male : 1960 Associated Diagnoses: None Author: MYRIAM WESLEY Preoperative Information Time of last food or liquid consumption: 07/24/2022 07:00:00 Anesthesia history Patient's history: negative. Family's history: negative. Review of Systems Ear/Nose/Mouth/Throat: Negative. Respiratory: Negative. Cardiovascular: htn. Gastrointestinal: Negative. Genitourinary: Negative. Endocrine: edwin disease. Musculoskeletal: Negative. Integumentary: Negative. Neurologic: Negative. Health Status Allergies: Allergic Reactions (Selected) NKA, Allergies (1) ActiveReaction NKANone Documented Current medications: (Selected) Inpatient Medications Ordered LR 1,000 mL: 50 mL/hr, Intravenous Prescriptions Prescribed hydrochlorothiazide-lisinopril 12.5 mg-10 mg oral tablet: 1 tab(s), Oral, Daily, 90 tab(s), 3 Refill(s) Documented Medications Documented FISH OIL, OMEGA 3, VIT D: 1 TAB, Oral, Daily, 0 Refill(s) Multivitamin: 1 tab(s), Oral, Daily, 0 Refill(s) erythromycin 0.5% ophthalmic ointment: 1 dinesh, Eye, right, Daily, PRN: as needed, 0 Refill(s) levothyroxine 100 mcg (0.1 mg) oral tablet: 100 mcg, 1 tab(s), Oral, qDay, 30 tab(s), 0 Refill(s) tamsulosin 0.4 mg oral capsule: 0 Refill(s), Medications (1) Active Scheduled: (0) Continuous: (1) Lactated Ringers Infusion 1,000 mL 1,000 mL, Intravenous, 50 mL/hr PRN: (0) Problem list: Medical Graves disease / SNOMED CT [id number] / Confirmed HTN (hypertension) / SNOMED CT [id number] / Confirmed, Active Problems (2) Graves disease HTN (hypertension) Histories Past Medical History: Resolved Shingles ([id number] ED2C): Resolved. Comments: 04/23/2017 EDT 10:23 Poly Dawson RN of eye Family History: Breast cancer Mother Heart failure Brother Procedure history: Colonoscopy and biopsy of colon ([id number]) on 04/23/2017 at 56 Years. Cataracts ([id number]) in 2017 at 56 Years. Comments: 04/23/2017 10:39 Poly Dawson RN RIGHT EYE Fusion of joint of cervical spine with internal fixation by anterior approach ([id number]) in 2014 at 54 Years. Iodine compound ([id number]) in 1995 at 35 Years. Comments: 04/23/2017 10:28 Poly Dawson RN radioactive iodine to thyroid for tx Graves disease Foot ([id number]). Comments: 11/15/2018 9:14 WINNIE Newmankelsie Mcmullen NERVE REMOVED FROM FOOT Hernia repair ([id number]). Social History Social & Psychosocial Habits Alcohol 04/19/2017Risk Assessment: Low Risk 11/15/2018 Use: Current Frequency: 1-2 times per month Substance Abuse 04/19/2017Risk Assessment: Denies Substance Abuse 11/15/2018 Use: Never Tobacco 04/21/2021 Tobacco Use: Former smoker, quit more Exposure to Tobacco Smoke Lives in non-smoking home Home/Environment 12/06/2019 Primary Design Teacher: Self Nutrition/Health 12/06/2019 Caffeine intake amount: 1-2 coffee in am . Physical Examination Vital Signs 07/24/2022 9:44 EST Temperature Temporal Artery 35.4 DegC Apical Heart Rate 62 bpm Respiratory Rate 20 br/min Systolic Blood Pressure Non-Invasive 149 mmHg HI Diastolic Blood Pressure Non-Invasive 99 mmHg HI Vital Signs(last 24 hrs) Last Charted Resp Rate 20 br/min (JUL 24 09:44) SBPH 149mmHg (JUL 24 09:44) DBPH 99mmHg (JUL 24 09:44) Measurements from flowsheet : Measurements 07/24/2022 9:58 EST Height 167.6 cm (Modified) Admission Weight 72.7 kg (Modified) Weight Method Stated (Modified) [place] Body Weight 63.76 kg Admission Body Mass Index 25.88 m2 07/24/2022 9:44 EST Height Date\Time Correction Height 167.6 cm Admission Weight Date\Time Correction Weight Method Date\Time Correction [place] Body Weight 63.76 kg [place] Body Weight -72.97 kg [place] Body Weight 63.76 kg Pain assessment: Pain Assessment 07/24/2022 9:58 EST Primary Pain Intensity 0 Pain Scale Type 0-10 Pain scale . General: Alert and oriented. Airway: Normal temporomandibular joint mobility. Mallampati classification: II (soft palate, fauces, uvula visible). Head: Normocephalic. Dentition Evaluation: Dentures, partial plate. Neck: Non-tender. Respiratory: Lungs are clear to auscultation. Cardiovascular: Normal rate. Heart Sounds: Normal. Gastrointestinal: Soft. Musculoskeletal Normal range of motion. Integumentary: Intact. Neurologic: Alert, Oriented. Review / Management Results review: No qualifying data available , Lab results 07/24/2022 10:06 EST Ed-Chronic Complications Verbalizes/Nonverbally indicates understanding Ed-Communication Verbalizes/Nonverbally indicates understanding 07/24/2022 10:05 EST Ed-Plan of Care Verbalizes/Nonverbally indicates understanding Individuals Taught Patient Preferred Written Language Omani Preferred Spoken Language Omani Pre Procedure/Surgery Education Appropriate expectations Ed-Reportable Symptoms Verbalizes/Nonverbally indicates understanding Ed-Encourage Hydration Verbalizes/Nonverbally indicates understanding Ed-Behaviors to Avoid Verbalizes/Nonverbally indicates understanding Ed-Emergency Care Indications Verbalizes/Nonverbally indicates understanding Lactated Ringers Injection Begin Bag 1,000 mL mL 07/24/2022 9:58 EST Designated Person #1 We May Share JHOANA marina [phone] (Modified) Designated Person #1 Relationship Daughter (Modified) Designated Person #2 We May Share JHOANA marina [phone] (Modified) Designated Person #2 Relationship Other: grandson (Modified) Privacy Restrictions Requested None (Modified) Height 167.6 cm (Modified) Admission Weight 72.7 kg (Modified) Weight Method Stated (Modified) [place] Body Weight 63.76 kg Admission Body Mass Index 25.88 m2 Primary Pain Intensity 0 Pain Scale Type 0-10 Pain scale Abdomen Description Non-distended, Soft Bowel Sounds All Quadrants Present Urinary Elimination Voiding, no difficulties Status N/A (Modified) Skin Temperature Warm Skin Description [place], Normal for ethnicity, Dry Skin Moisture General Dry IV Present Present Hand Right 07/24/2022 22 gauge Peripheral IV Activity: Insert new site Peripheral IV Site Condition: No complications Peripheral IV Number of Attempts: 2 Extremity Movement Equal Characteristics of Speech Clear Strength All Extremities Strong Sensory Deficits None (Modified) Sleep Apnea Snore No (Modified) Sleep Apnea Tired No (Modified) Sleep Apnea Obstruction No (Modified) Sleep Apnea Pressure Yes (Modified) Sleep Apnea BMI No (Modified) Sleep Apnea Age Yes (Modified) Sleep Apnea Neck No (Modified) Sleep Apnea Gender Yes (Modified) Sleep Apnea Score 3 (Modified) High Risk for Sleep Apnea No (Modified) Diagnosed With Sleep Apnea No (Modified) Advanced Directives No - refuses information (Modified) Infectious Disease Symptoms Patient states no symptoms (Modified) Infectious Disease Recent Exposure No (Modified) Alcohol and Drug Use No (Modified) 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 No (Modified) 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 No (Modified) History of Exposure to TB No (Modified) History of Positive Chest X-Ray for TB No (Modified) History of Positive TB Skin Test No (Modified) Homeless No (Modified) Known Immunosuppression No (Modified) Recent Immigrant No (Modified) Resident of Institutional Living No (Modified) Bloody Sputum No (Modified) Fatigue No (Modified) Fever No (Modified) Loss of Appetite No (Modified) Night Sweats No (Modified) Persistent Cough > 3 Weeks No (Modified) Weight Loss No (Modified) Allergies Yes 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 On 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 Colon Prep Results Excellent Consent Form Signed Yes Patient Dressed In Hospital gown History & Physical Update On Chart Yes History & Physical On Chart Yes Bowel Prep Completed Yes Obstructive Sleep Apnea Assess Completed Yes Safety Brochure Information Reviewed Unable to complete (Modified) [place] Video Viewed No (Modified) Barriers to Learning None evident (Modified) Teaching Method Explanation (Modified) Teaching Evaluation No further teaching needed (Modified) Preferred Written Language Omani (Modified) Preferred Spoken Language Omani (Modified) Information Given by Patient (Modified) Patient's Current Physicians Patient's Current Physicians (Modified) Discharge To, Anticipated Home with family care (Modified) Activity Status ADL Ambulating in smith, Ambulating in room, Awake NPO Status Maintained Standard Safety ID band on, Call device within reach, Bed in low position, Wheels locked Prev Test Positive/Diagnosis w/COVID-19 Yes (Modified) Previous COVID-19 Positive Date 2021 (Modified) Current Quarantine/Isolated any Illness No (Modified) Any Contact with Sick Animals/Birds No (Modified) Traveled Anywhere in Last 30 Days No (Modified) Patient ID Band on and Verified Yes Implants Verified Yes Pacemaker/AICD Verified Yes Last Fluid Intake 07/24/2022 7:00 Last Food Intake 07/22/2022 18:30 Last Void 07/24/2022 10:04 Lost Weight Unintentionally Recently No (Modified) Eat Poorly Due to Decreased Appetite No (Modified) Total MST Score 0 (Modified) N/A (Modified) Personal Devices, Patient Valuables Glasses (Modified) Anesthesia/Transfusions Prior anesthesia (Modified) Admission Note-Nursing Same Day Patient History (Modified) 07/24/2022 9:44 EST Designated Person #1 We May Share PHI Date\Time Correction Designated Person #1 Relationship Date\Time Correction Designated Person #2 We May Share PHI Date\Time Correction Designated Person #2 Relationship Date\Time Correction Privacy Restrictions Requested Date\Time Correction Height Date\Time Correction Height 167.6 cm Admission Weight Date\Time Correction Weight Method Date\Time Correction [place] Body Weight 63.76 kg [place] Body Weight -72.97 kg [place] Body Weight 63.76 kg Temperature Temporal Artery 35.4 DegC Apical Heart Rate 62 bpm Respiratory Rate 20 br/min Systolic Blood Pressure Non-Invasive 149 mmHg HI Diastolic Blood Pressure Non-Invasive 99 mmHg HI Heart Sounds ICU S1S2 Heart Rhythm Regular Oxygen Therapy Room air Oxygen Saturation 97 % Status Date\Time Correction Sensory Deficits Date\Time Correction Sleep Apnea Snore Date\Time Correction Sleep Apnea Tired Date\Time Correction Sleep Apnea Obstruction Date\Time Correction Sleep Apnea Pressure Date\Time Correction Sleep Apnea BMI Date\Time Correction Sleep Apnea Age Date\Time Correction Sleep Apnea Neck Date\Time Correction Sleep Apnea Gender Date\Time Correction Sleep Apnea Score Date\Time Correction High Risk for Sleep Apnea Date\Time Correction Diagnosed With Sleep Apnea Date\Time Correction Advanced Directives Date\Time Correction Infectious Disease Symptoms Date\Time Correction Infectious Disease Recent Exposure Date\Time Correction Alcohol and Drug Use Date\Time Correction 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 Date\Time Correction 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 Date\Time Correction History of Exposure to TB Date\Time Correction History of Positive Chest X-Ray for TB Date\Time Correction History of Positive TB Skin Test Date\Time Correction Homeless Date\Time Correction Known Immunosuppression Date\Time Correction Recent Immigrant Date\Time Correction Resident of Institutional Living Date\Time Correction Bloody Sputum Date\Time Correction Fatigue Date\Time Correction Fever Date\Time Correction Loss of Appetite Date\Time Correction Night Sweats Date\Time Correction Persistent Cough > 3 Weeks Date\Time Correction Weight Loss Date\Time Correction Safety Brochure Information Reviewed Date\Time Correction [place] Video Viewed Date\Time Correction Barriers to Learning Date\Time Correction Teaching Method Date\Time Correction Teaching Evaluation Date\Time Correction Preferred Written Language Date\Time Correction Preferred Spoken Language Date\Time Correction Information Given by Date\Time Correction Patient's Current Physicians Date\Time Correction Belongings Sent Home Cell phone, Glasses, Pants, Shirt, Shoes Discharge To, Anticipated Date\Time Correction Prev Test Positive/Diagnosis w/COVID-19 Date\Time Correction Previous COVID-19 Positive Date Date\Time Correction Current Quarantine/Isolated any Illness Date\Time Correction Any Contact with Sick Animals/Birds Date\Time Correction Traveled Anywhere in Last 30 Days Date\Time Correction Lost Weight Unintentionally Recently Date\Time Correction Eat Poorly Due to Decreased Appetite Date\Time Correction Total MST Score Date\Time Correction Date\Time Correction Personal Devices, Patient Valuables Date\Time Correction Anesthesia/Transfusions Date\Time Correction Admission Note-Nursing Date\Time Correction . Assessment and Plan [place] [employer] Anesthesiologists (ASA) physical status classification: Class II. Anesthetic Preoperative Plan Anesthetic technique: MAC. Postoperative pain management: Per surgeon. Informed consent: signed by patient. Digitally Signed by MYRIAM WESLEY on 07/24/2022 10:16 AM [facility] 09-30-2021 Hospital Discharg e instructions Patient Education 09/30/2021 10:32:34 ANKLE FRACTURE (Distal Fibula), closed Fracture, Ankle, Distal Fibula You have a fracture (broken bone) of the end of the fibula bone. This is one of two bones that support the ankle joint. Home Care: 1.You will be given a splint, cast or special boot to prevent movement at the site of injury. Do not put weight on a splint; it will break. Follow your doctor's advice regarding when to begin bearing weight on a cast or boot. 2.Keep your leg elevated when sitting or lying down. When sleeping, place a pillow under the injured leg. When sitting, support the injured leg so it is level with your waist. This is very important during the first 48 hours. 3.Keep the cast/splint completely dry at all times. When bathing, protect the cast/splint with a large plastic bag, rubber-banded at the top end. If a fiberglass cast or splint gets wet, you can dry it with a hair-dryer. 4.Place an ice pack (ice cubes in a plastic bag, wrapped in a towel) on the splint/cast over the injured area for 20 minutes every 2 hours during the first day.You can place the ice pack directly over the splint/cast. Continue this 3-4 times a day for the next two days. 5.You may use acetaminophen (Tylenol) or ibuprofen (Motrin, Advil) to control pain, unless another pain medicine was prescribed. [NOTE: If you have chronic liver or kidney disease or ever had a stomach ulcer or GI bleeding, talk with your doctor before using these medicines.] Follow Up with your doctor in one week, or as advised by our staff, to be sure the bone is healing properly. If you were given a splint, it may be changed to a cast after the swelling goes down. [NOTE: A radiologist will review any X-rays that were taken. We will notify you of any new findings that may affect your care.] Get Prompt Medical Attention if any of the following occur: The plaster cast or splint becomes wet or soft The fiberglass cast or splint remains wet for more than 24 hours Increased tightness or pain under the cast or splint Toes become swollen, cold, blue, numb or tingly 3925-[address] [employer]. [address] [place] [address]. All rights reserved. This information is not intended as a substitute for professional medical care. Always follow your healthcare professional's instructions. Follow Up Care 09/30/2021 09:49:01 With:DO DICK WEAVER DO Address: [address] [place] [address] [address] [place] [address] When:2-4 days With:CUATE ZAVALA DPEarlene, Surgery Address: [address] [facility] [address] [place] [address]- Business (1) When:2-4 days [facility] Evaluation + Plan note No data available for this section [facility] Evaluation + Plan note Future Appointments [facility] Evaluation + Plan note Future Appointments Appointment Date:12/03/2022 05:00:00 PM Scheduled Provider:FEROZ RAMÍREZ Location:[facility] Appointment Type:PC Wellness Annual [facility] Evaluation + Plan note Future Appointments Appointment Date:12/31/2022 09:30:00 AM Scheduled Provider: Location:[facility] Appointment Type:CT Thorax Screening w/o Contrast Appointment Date:12/21/2023 08:00:00 AM Scheduled Provider:FEROZ RAMÍREZ Location:[facility] Appointment Type:PC Wellness Annual Future Scheduled TestsProstate Specific Antigen 03/19/23CT Low Dose Lung Cancer Screening (LDCT) 12/31/22 [facility] Evaluation + Plan note Future Appointments Appointment Date:12/21/2023 08:00:00 AM Scheduled Provider:FEROZ RAMÍREZ Location:[facility] Appointment Type:PC Wellness Annual Future Scheduled TestsProstate Specific Antigen 03/19/23 [facility] Hospital Discharge instructions No data available for this section [facility] Progress note No data available for this section [facility] Summary Purpose Family History No Family History Records Found Advance Directives No Advanced Directives Records Found Additional Source Comments Care Team (unrecognized sect ion and content) Personnel Name: FEROZ RAMÍREZ Address: [address] [place] [address]- [place] Care Team Personnel Name: FEROZ RAMÍREZ Position: [facility] C[facility] Member Role: Primary Care Physician Address: Address: [address] [place] [address]- [place] Name: ALMA ROSA SMALLS ACCOUNT LEADER Member Role: Urologist Address: Address: [address] [place] [address] [place] Care Team Related Persons Name: HO[place] MARINAANNAE Care Team Personnel Name: FEROZ RAMÍREZ APRN-ACCOUNT LEADER Position: [facility] C[facility] Member Role: Primary Care Physician Address: Address: [address] [place] [address]- Name: ALMA ROSA SMALLS ACCOUNT LEADER Member Role: Urologist Address: Address: [address] [facility] [address] [place] [address]- [place] Care Team Related Persons Name: MARINA, JEANNAE Care Team Personnel Name: FEROZ RAMÍREZ APRN-ACCOUNT LEADER Position: [facility] C[facility] Member Role: Primary Care Physician Address: Address: [address] [place] [address]- [place] Name: ALMA ROSA SMALLS ACCOUNT LEADER Member Role: Urologist Address: Address: [address] [facility] [address] [place] [address] [place] Care Team Related Persons Name: MARINA, JEANNAE Care Team Personnel Name: FEROZ RAMÍREZ APRN-ACCOUNT LEADER Position: [facility] C[facility] Member Role: Primary Care Physician Address: Address: [address] [place] [address]- [place] Name: ALMA ROSA SMALLS ACCOUNT LEADER Member Role: Urologist Address: Address: [address] [facility] [address] [place] [address]- [place] Care Team Related Persons Name: MARINA, JEANNAE Care Team Personnel Name: FEROZ RAMÍREZ APRN-ACCOUNT LEADER Position: [facility] Member Role: Primary Care Physician Address: Address: [address] [place] [address]- [place] Name: ALMA ROSA SMALLS ACCOUNT LEADER Member Role: Urologist Address: Address: [address] [facility] [address] [place] [address]- [place] Care Team Related Persons Name: LAINA, JEANNAE Care Team Personnel Name: FEROZ RAMÍREZ APRN-ACCOUNT LEADER Position: [facility] C[facility] Member Role: Primary Care Physician Address: Address: [address] [place] [address]- [place] Name: REBA VALLES MD Position: P3 Physician - Second Butler Member Role: Duck Operator Address: Address: [address] [place] [address] [place] [address]- [place] Name: ALMA ROSA SMALLS ACCOUNT LEADER Member Role: Urologist Address: Address: [address] [place] [address]- Care Team Related Persons Name: LATRICE MARINA Care Team (unrecognized sect ion and content) Care Team Personnel Name: FEROZ RAMÍREZ Position: P4 [facility] Nurse Med Service: Active Provider Member Role: Primary Care Physician Address: Address: [address] [place] [address]- Name: ALMA ROSA SMALLS ACCOUNT LEADER Member Role: Urologist Address: Address: [address] [address]- Care Team Related Persons Name: BOO HORNE Address: Home [address] [place], [place] [id number] Care Team Personnel Name: FEROZ RAMÍREZ Position: P4 Advanced [facility] Nurse Member Role: Primary Care Physician Address: Address: [address] [place] [address]- Name: ALMA ROSA SMALLS ACCOUNT LEADER Member Role: Urologist Address: Address: [address] [place] [address]- Care Team Related Persons Name: BOO HORNE Address: Home [address] [place], [place] [id number] Care Team Personnel Name: FEROZ RAMÍREZ Position: P4 Advanced Practice Nurse Member Role: Primary Care Physician Address: Address: [address] [place] [address] Name: ALMA ROSA SMALLS ACCOUNT LEADER Member Role: Urologist Address: Address: [address] [place] [address]- Care Team Related Persons Name: LATRICE MARINA (unrecognized sect ion and content) No Status Records Found INFORMATION SOURCE (unrecogn ized section and content) FOR RECORDS PERTAINING TO PATIENTS WHO ARE OR HAVE BEEN ENROLLED IN A CHEMICAL DEPENDENCY/SUBSTANCEABUSE PROGRAM, SOME INFORMATION MAY BE OMITTED. This clinical summary was aggregated from multiple sources. Caution should be exercised in using it in the provision of clinical care. This summary normalizes information from multiple sources, and as a consequence, information in this document may materially change the coding, format and clinical context of patient data. In addition, data may be omitted in some cases. CLINICAL DECISIONS SHOULD BE BASED ON THE PRIMARY CLINICAL RECORDS. [facility] [employer] [facility]. provides no warranty or guarantee of the accuracy or completeness of information in this document.
--- NOTE | 2023-07-29 | IMM_PTH ---
PATHOLOGY RESULTS PATIENT: DEBBI HORNE LOC: [facility] U#:[id number] AGE/SX: 62/M ROOM: RE07/27/[address]: Dr. Quirino Carvajal MD : 1960 BED: DIS: 07/27/2023 SPEC #: [id number] RECD: 07/29/23 11:13 STATUS: JESUS REQ #: [id number] JOSEFA: 07/29/23 00:[address]: Quirino Carvajal DEPT: IMMUNOHISTOCHEMISTRY RECD BY: Kavitha Archuleta ENTERED: 07/29/23 11:14 SP TYPE: IMMUNO OTHR DR: Omar Simmons, BURR MACHINE OPERATOR-C Tissues: PROSTATE RIGHT PROSTATE RIGHT Procedures: 34BE12 (add) P40 (add) 34BE12 (initial) PHYSICIAN & INSTITUTION [place] [address] SPECIMEN INFORMATION: Tissue Source: A - Right Prostate, apex, core biopsy, B - Right prostate, mid, core biopsy Clinical Info: Elevated PSA Specimen Number: [id number] A & B CPT code: 84381, 91522 x3 METHODOLOGY: Deparaffinized sections of prefer/formalin-fixed tissue or PAP/DQ stained slides are incubated with monoclonal/polyclonal antibodies/oligonucleotide probes. Localization is made via biotin free immunoperoxidase method. Appropriate controls are performed and reacted as expected. Results on target cell population are indicated in the following table: RESULTS: ANTIBODY / CLONE RESULT Block A P40 (BC28) negative 34BE12 (34BE12) positive Block B P40 (BC28) negative 34BE12 (34BE12) positive These tests were developed and their performance characteristics determined by [facility]. They may not have been cleared or approved by the U.S. Food and Drug Administration. The FDA has determined that such clearance or approval is not necessary. The above immunohistochemical/dualISH markers are ordered and reviewed by the Pathologist. INTERPRETATION: A. Right Prostate, apex, core biopsy: No definitive evidence of malignancy. B. Right prostate, mid, core biopsy: No definitive evidence of malignancy. AM:ramses 07/30/2023
== END | disposition home or self-care (01) ==
LOC: LABSPEC 16:47
PROVIDERS: PCP Nurse Practitioner Primary Care; Referring Provider Urology; Visit Provider Urology
DX: R97.20 Elevated prostate specific antigen [PSA] (principal); I89.8 Other specified noninfective disorders of lymphatic vessels and lymph nodes
CPT/HCPCS: 88305; 88341; 88342; G0416

== ENCOUNTER → 2024-02-22 | Outpatient (CLI) | payer BC, SELFPAY ==
[2024-02-22 09:54] LABS: PSA,Total- Diagnostic 7.81 ng/mL (0.0-4.0)
== END | disposition home or self-care (01) ==
LOC: LAB 08:40
PROVIDERS: PCP Nurse Practitioner Primary Care; Referring Provider Urology; Visit Provider Urology
DX: R97.20 Elevated prostate specific antigen [PSA] (principal)
CPT/HCPCS: 36415; 84153